=== PATIENT | female | born 1995 | race Caucasian/White ===

== ENCOUNTER 2019-09-30 13:50 | Inpatient (IN) | payer BC, OTHER ==
[~2019-09-30] VITALS: Ht 162.5 cm; Wt 79.6 kg
[2019-09-30] VITALS (11 sets, daily range): BP systolic 120–150; BP diastolic 64–86
--- NOTE | 2019-09-30 14:00 | NUR ---
Brought to ED 1 from registration window just minutes after arrival by PCCT. Pt ambulated and got on cart for quick assessments. RN and Dr Houston to room. Pt has wet appearing clothing from waist down. Pt states, "My water broke." Pt provides minimal information. Dr and RN asks detailed questions with brief simple answers rec'd. Pt originally did not realize she was . Pt did not offer much information. Pt states no prenantal care, has had 3 prior pregnancies and this is the 4th. Pt used Dr Hills once. Pt does not contribute to what term those pregnancies reached. Pt claims having a period every month as seeing some blood. Pt feels her last real period was 4 mo ago. Current smoker reaching about 1/3 pack/day now.Denies alcohol. Denies current or past recreational drug usage. Pt denies severe pain. "I just have a lot of pressure right now." Pt instructed laying on cart with no pushing or attempt to bear down. Dr Houston examing pt's cervix with report she appeared very dilated and requests EMS to ER stat @ 1408. Tawanna COLLAZO, RN Coordinator is doing phone contacts for this RN that remains in pt room. OB precipitous delivery supplies brought to room being made ready/available. 1414--Dr Crisostomo to room having come from her office to see patient and also examine patient. It is noted this patient has fluid that is on the white sheet beneath here that has greenish-yellow color making concern for meconium staining. Continue to assess for FHT. On left lateral the FHT found at 124. 1415--[facility] crew arriving. IV started [address] Crisostomo reports patient is 5cm now appearing to be 6cm. Dr Houston spoke with Dr Hills who is in [place] and he has accepted this transfer to the L&D department at [facility] [place]. 1425--Pt is positioned onto EMS cot and being secured. Dr Crisostomo reports she will be a ride along on EMS transfer and will keep Dr Hills updated via her phone. 1430--Report to Kasandra Yates RN. 1436--Depart ER at this time with [facility] EMS and Dr Crisostomo on board, Code Red.
--- NOTE | 2019-09-30 14:13 | ED GU-Female ---
General Chief Complaint: OB > 20 WEEKS Stated Complaint: WATER BROKE; SUPRAPUBIC PAIN/PRESSURE Source: patient Exam Limitations: no limitations History of Present Illness Date Seen by Provider: Sep 30, 2019 Time Seen by Provider: 13:52 Initial Comments The patient is a 24-year-old female who presents for evaluation after her water broke at home. She is unsure of her last period because she states that she has been having periods during this . She did not have any care during the spread and see. She states that she is a and that she has seen Dr. Hills in the past. She does not believe that she is having contractions at this time. Timing/Duration: just prior to arrival Severity/Quality: mild Location: suprapubic (pressure) Radiation: none Activities at Onset: none Prior Genitourinary Problems: none Allergies and Home Medications Patient Home Medication List Home Medication List Reviewed: Yes Review of Systems Review of Systems Constitutional: no symptoms reported EENTM: no symptoms reported Respiratory: no symptoms reported Cardiovascular: no symptoms reported Gastrointestinal: other (suprapubic discomfort, water broke) Genitourinary: no symptoms reported Musculoskeletal: no symptoms reported Skin: no symptoms reported Psychiatric/Neurological: No Symptoms Reported Endocrine: No Symptoms Reported Hematologic/Lymphatic: No Symptoms Reported All Other Systemes Reviewed Negative Unless Noted: Yes Past Ipyqrzr-Xqklmv-Qkbrul Hx Past Med/Social Hx: Reviewed Nursing Past Med/Soc Hx Patient Social History Recent Foreign Travel: No Contact w/Someone Who Travel: No Physical Exam Vital Signs Capillary Refill : Height, Weight, BMI Height: '" Weight: lbs. oz. kg; BMI Method: General Appearance: WD/WN, no apparent distress, other (pt calm, appears comfortable) HEENT: PERRL/EOMI, pharynx normal Cardiovascular: regular rate, rhythm, no edema, no JVD, no murmur Respiratory: lungs clear, normal breath sounds, no respiratory distress, no accessory muscle use Gastrointestinal: non tender, soft, no pulsatile mass, other (gravid, non- tender abdomen) Genital/Rectal: other (cervix dilated to approx 8cm, can feel top of head, no bleeding, FHT's are reassuring) Back: normal inspection, no vertebral tenderness Extremities: non-tender, no pedal edema, no calf tenderness Neurologic/Psychiatric: no motor/sensory deficits, alert, normal mood/affect, oriented x 3 Skin: normal color, warm/dry Progress/Results/Core Measures Suspected Sepsis SIRS Temperature: Pulse: Respiratory Rate: Blood Pressure / Mean: Results/Orders Vital Signs/I&O Capillary Refill : Progress Note : Progress Note @1355 - Case d/w Dr. Hills who states to transfer the pt to [place] but to discuss with Dr. Crisostomo if needed as she can assist with delivery if delivery is imminent. Message left with Dr. Crisostomo. Pt dilated but denies feeling any contractions. EMS called to arrange for transfer to [facility]. @1405 - EMS in department awaiting transfer. Dr. Crisostomo states she is en route to assist. @1413 - Dr. Crisostomo in the ED. @1418 - Dr. Crisostomo states the pt can be transferred and she is going to contact Dr. Hills to help with the transfer at this time. EMS taking patient to [facility]. Departure Communication (Admissions) Time/Spoke to Admitting Phy: 14:15 Dr. Hills accepts the pt for transfer to [facility] L&D. Impression Primary Impression: Rupture of membranes with clear amniotic fluid Additional Impression: care insufficient Disposition: ADMITTED INPATIENT Condition: Critical Admissions Decision to Admit Reason: Admit from ER (General) Decision to Admit/Date: Sep 30, 2019 Time/Decision to Admit Time: 14:15 Departure-Patient Inst. Referrals: NO,LOCAL PHYSICIAN (PCP/Family) Primary Care Physician EDEL MORALES DO Sep 30, 2019 14:13
--- NOTE | 2019-09-30 14:18 | NUR ---
Dr. Crisostomo arrived. Dr. Crisostomo stated patient is dilated to a 5-6
--- NOTE | 2019-09-30 14:21 | NUR ---
[facility] was called and notified that Dr. Crisostomo and [facility] are bringing a patient in that is in labor. [facility] was called and notified that patient was coming.
--- NOTE | 2019-09-30 14:30 | NUR ---
Call report to Labor and delivery Kasandra Yates RN.
--- NOTE | 2019-09-30 14:36 | NUR ---
Pt departing ER on [facility] CODE RED to [place] [facility] L&D Dept. Dr Crisostomo, [facility] SHARED SERVICES CONSULTANT physician is accompanying as a ride along on EMS.
[2019-09-30] MEDS ORDERED: D5 LR IV SOLUTION 1,000 ML IV ONE (15:23)
[2019-09-30] MEDS ORDERED: OXYTOCIN PRE-MIX DRIP 500 ML IV ONE (15:23)
[2019-09-30] MEDS ORDERED: AMPICILLIN FOR IV USE 2,000 MG VIAL ONE (15:23)
[2019-09-30 15:25] LABS: BILIRUBIN,URINE NEGATIVE (NEGATIVE); CLARITY,URINE CLEAR; COLOR,URINE YELLOW; GLUCOSE, URINE (UA) NEGATIVE (NEGATIVE); KETONES,URINE 2+ (NEGATIVE); LEUKOCYTE ESTERASE ,URINE 1+ (NEGATIVE); NITRITE,URINE NEGATIVE (NEGATIVE); PH,URINE 6.5 (5-9); PROTEIN,URINE TRACE (NEGATIVE)
[2019-09-30 15:31] LABS: BACTERIA,URINE TRACE /HPF; RBC,URINE RARE /HPF; WBC,URINE 0-2 /HPF
[2019-09-30 15:49] LABS: BASOPHILS % (AUTO) 0 % (0-10); EOSINOPHILS # (AUTO) 0.1 10^3/uL (0.0-0.3); EOSINOPHILS % (AUTO) 1 % (0-10); HEMATOCRIT 31 % (35-52); HEMOGLOBIN 9.9 G/DL (11.5-16.0); LYMPHOCYTES # (AUTO) 1.4 X 10^3 (1.0-4.0); LYMPHOCYTES % (AUTO) 11 % (12-44); MEAN CORPUSCULAR HEMOGLOBIN 28 PG (25-34); MEAN CORPUSCULAR HGB CONC 32 G/DL (32-36); MEAN CORPUSCULAR VOLUME 86 FL (80-99); MEAN PLATELET VOLUME 12.6 FL (7.4-10.4); MONOCYTES # (AUTO) 0.9 X 10^3 (0.0-1.0); MONOCYTES % (AUTO) 7 % (0-12); NEUTROPHILS # (AUTO) 9.8 X 10^3 (1.8-7.8); NEUTROPHILS % (AUTO) 81 % (42-75); PLATELET COUNT 128 10^3/uL (130-400); RED CELL DISTRIBUTION WIDTH 14.4 % (10.0-14.5); WHITE BLOOD COUNT 12.1 10^3/uL (4.3-11.0)
--- NOTE | 2019-09-30 16:03 | History & Physical-OB/GYN ---
History of Present Illness History of Present Illness Reason for visit/HPI Ms. Berger, A0 with No Care, was transferred here by EMS after her water broke in [place]. Date of Admission Sep 30, 2019 at 14:56 Date Seen by a Provider: Sep 30, 2019 Time Seen by a Provider: 15:45 I consulted on this patient on 09/30/19 15:58 Attending Physician Jason Hills DO Admitting Physician Jason Hills DO Consult Allergies and Home Medications Allergies Coded Allergies: No Known Drug Allergies (Unverified , 09/30/19) Patient Home Medication List Home Medication List Reviewed: Yes Past Lxzjeut-Rputcy-Opounw Hx Patient Social History Alcohol Use: Denies Use Recreational Drug Use: No Smoking Status: Current Everyday Smoker Type Used: Cigarettes 2nd Hand Smoke Exposure: Yes Recent Foreign Travel: No Contact w/other who traveled: No Recent Hopitalizations: No Recent Infectious Disease Expo: No Seasonal Allergies Seasonal Allergies: No Surgeries Yes (cyst on breast) Respiratory No Cardiovascular No Neurological No Reproductive System : Yes Hx : 4 Hx Para: 3 Genitourinary No Gastrointestinal No Musculoskeletal No Endocrine History of Endocrine Disorders: No HEENT History of HEENT Disorders: No Cancer No Psychosocial History of Psychiatric Problem: No Integumentary History of Skin or Integumenta: No (numerous scabs on extremities, some are he aled) Blood Transfusions History of Blood Disorders: No Review of Systems Constitutional: see HPI Physical Exam Physical Exam Vital Signs Vital Signs Date Time Temp Pulse Resp B/P (MAP) Pulse Ox O2 Delivery O2 Flow Rate FiO2 09/30/19 14:00 36.9 107 20 145/95 (112) 96 Room Air Capillary Refill : Less Than 3 Seconds Labs Laboratory Tests 09/30/19 03:30: White Blood Count 12.1H, Red Blood Count 3.60L, Hemoglobin 9.9L, Hematocrit 31L, Mean Corpuscular Volume 86, Mean Corpuscular Hemoglobin 28, Mean Corpuscular Hemoglobin Concent 32, Red Cell Distribution Width 14.4, Platelet Count 128L, Mean Platelet Volume 12.6H, Neutrophils (%) (Auto) 81H, Lymphocytes (%) (Auto) 11L, Monocytes (%) (Auto) 7, Eosinophils (%) (Auto) 1, Basophils (%) (Auto) 0, Neutrophils # (Auto) 9.8H, Lymphocytes # (Auto) 1.4, Monocytes # (Auto) 0.9, Eosinophils # (Auto) 0.1, Basophils # (Auto) 0.0 09/30/19 15:07: Urine Color YELLOW, Urine Clarity CLEAR, Urine pH 6.5, Urine Specific [place] 1.015L, Urine Protein TRACEH, Urine Glucose (UA) NEGATIVE, Urine Ketones 2+H, Urine Nitrite NEGATIVE, Urine Bilirubin NEGATIVE, Urine Urobilinogen 1.0, Urine Leukocyte Esterase 1+H, Urine RBC (Auto) NEGATIVE, Urine RBC RARE, Urine WBC 0- 2, Urine Squamous Epithelial Cells 2-5, Urine Crystals NONE, Urine Bacteria TRACE, Urine Casts NONE, Urine Mucus NEGATIVE, Urine Culture Indicated NO, Urine Opiates Screen NEGATIVE, Urine Oxycodone Screen NEGATIVE, Urine Methadone Screen NEGATIVE, Urine Propoxyphene Screen NEGATIVE, Urine Barbiturates Screen NEGATIVE, Ur Tricyclic Antidepressants Screen NEGATIVE, Urine Phencyclidine Screen NEGATIVE, Urine Amphetamines Screen NEGATIVE, Urine Methamphetamines Screen NEGATIVE, Urine Benzodiazepines Screen NEGATIVE, Urine Cocaine Screen NEGATIVE, Urine Cannabinoids Screen NEGATIVE General Appearance: Moderate Distress (Screams with each contractions, but refuses epidural anesthesia) Respiratory: Chest Non Tender, Lungs Clear, Normal Breath Sounds Cardiovascular: Regular Rate, Rhythm, No Murmur Abdominal: normal bowel sounds Vagina: WNL Cervix OS: open (5-6 cm/80%/-3 Vertex/SROM) Uterus: WNL, Enlarged (Gravid) Pelvic Exam: normal external exam Extremity: Normal Inspection, Normal Range of Motion, No Calf Tenderness Assessment/Plan Assessment and Plan Intrauterine at undetermined gestation 2. Unknown GBS Plan: Ampicillin given for GBS prophylaxis. Expectant management. Jamb Cutter and Respiratory both available. Admission Diagnosis Admission Status: Inpatient Order (span 2 midnights) Reason for Inpatient Admission: Intrauterine unknown gestational age 2. No care 3. Unknown GBS status JASON HILLS DO Sep 30, 2019 16:03
[2019-09-30] MEDS ORDERED: LIDOCAINE 1% INJ 20 ML 20 ML VIAL ONE (16:06)
[2019-09-30] MEDS ORDERED: LIDOCAINE/EPI 2% 1:200,00 (XYLOCAINE) 10 ML VIAL ONE (16:06)
[2019-09-30 16:07] LABS: AMPHETAMINE SCREEN, URINE NEGATIVE (NEGATIVE); BARBITURATE SCREEN URINE NEGATIVE (NEGATIVE); BENZODIAZEPINES SCREEN URINE NEGATIVE (NEGATIVE); CANNABINOID SCREEN, URINE NEGATIVE (NEGATIVE); COCAINE SCREEN URINE NEGATIVE (NEGATIVE); METHADONE STAT NEGATIVE (NEGATIVE); METHAMPHETAMINE SCREEN URINE S NEGATIVE (NEGATIVE); OPIATE SCREEN URINE NEGATIVE (NEGATIVE); OXYCODONE STAT NEGATIVE (NEGATIVE); PROPOXYPHENE STAT NEGATIVE (NEGATIVE); TRICYCLIC ANTIDEPRESSANTS SCRE NEGATIVE (NEGATIVE)
[2019-09-30] MEDS ORDERED: OXYTOCIN PRE-MIX DRIP 500 ML IV SCH (16:34)
--- OUTSIDE RECORDS SUMMARY | 2019-09-30 16:35 | XMS REPORT | Continuity of Care Document ---
Author Organization Unknown Address Unknown Phone Unavailable Allergies Active Description Code Type Severity Reaction Onset Reported/Identified Relationship to Patient Clinical Status Yes No Known Drug Allergies [id number] Drug Allergy Unknown N/A 09/30/2019 Medications There is no data. Problems There is no data. Procedures There is no data. Results Test Result Range Complete blood count (CBC) with automate d white blood cell (WBC) differential - 09/30/19 03:30 Blood leukocytes automated count (number/volume) 12.1 10*3/uL 4.3-11.0 Blood erythrocytes automated count (number/volume) 3.60 10*6/uL 4.35-5.85 Venous blood hemoglobin measurement (mass/volume) 9.9 g/dL 11.5-16.0 Blood hematocrit (volume fraction) 31 % 35-52 Automated erythrocyte mean corpuscular volume 86 [ foz_us] 80-99 Automated erythrocyte mean corpuscular h emoglobin (mass per erythrocyte) 28 pg 25-34 Automated erythrocyte mean corpuscular h emoglobin concentration measurement (mass/volume) 32 g/dL 32-36 Automated erythrocyte distribution width ratio 14. 4 % 10.0- 14.5 Automated blood platelet count (count/volume) 128 10*3/uL 130-400 Automated blood platelet mean volume measurement 12.6 [foz_us] 7.4-10.4 Automated blood neutrophils/100 leukocytes 81 % 42-75 Automated blood lymphocytes/100 leukocytes 11 % 12-44 Blood monocytes/100 leukocytes 7 % 0-12 Automated blood eosinophils/100 leukocytes 1 % 0-10 Automated blood basophils/100 leukocytes 0 % 0-10 Blood neutrophils automated count (number/volume) 9.8 10*3 1.8-7.8 Blood lymphocytes automated count (number/volume) 1.4 10*3 1.0-4.0 Blood monocytes automated count (number/volume) 0. 9 10*3 0.0-1.0 Automated eosinophil count 0.1 10*3/uL 0 .0-0.3 Automated blood basophil count (count/volume) 0.0 10*3/uL 0.0-0.1 Complete urinalysis with reflex to cultu re - 09/30/19 15:07 Urine color determination YELLOW NRG Urine clarity determination CLEAR NR G Urine pH measurement by test strip 6.5 5-9 Specific gravity of urine by test strip 1.015 1.016-1.022 Urine protein assay by test strip, semi-quantitative TRACE NEGATIVE Urine glucose detection by automated test strip NE GATIVE NEGATIVE Erythrocytes detection in urine sediment by light micr oscopy NEGATIVE NEGATIVE Urine ketones detection by automated test strip 2+ NEGATIVE Urine nitrite detection by test strip NEGATIVE NEGATIVE Urine total bilirubin detection by test strip NEGA TIVE NEGATIVE Urine urobilinogen measurement by automated test strip (mass/volume) 1.0 mg/dL < = 1.0 Urine leukocyte esterase detection by dipstick 1+ NEGATIVE Automated urine sediment erythrocyte cou nt by microscopy (number/high power field) RARE NRG Automated urine sediment leukocyte count by microscopy (number/high power field) [HPF] NRG Bacteria detection in urine sediment by light microsco py TRACE NRG Squamous epithelial cells detection in u rine sediment by light microscopy 2-5 NRG Crystals detection in urine sediment by light microsco py NONE NRG Casts detection in urine sediment by light microscopy NONE NRG Mucus detection in urine sediment by light microscopy NEGATIVE NRG Complete urinalysis with reflex to culture NO NRG Urine drug screening test - 09/30/19 15: 07 Urine phencyclidine detection by screening method NEGATIVE NEGATIVE Urine benzodiazepines detection by screening method NEGATIVE NEGATIVE Urine cocaine detection NEGATIVE NEGATI VE Urine amphetamines detection by screening method N EGATIVE NEGATIVE Urine methamphetamine detection by screening method NEGATIVE NEGATIVE Urine cannabinoids detection by screening method N EGATIVE NEGATIVE Urine opiates detection by screening method NEGATI VE NEGATIVE Urine barbiturates detection NEGATIVE N EGATIVE Screening urine tricyclic antidepressants detection NEGATIVE NEGATIVE Urine methadone detection by screening method NEGA TIVE NEGATIVE Urine oxycodone detection NEGATIVE NEGA TIVE Urine propoxyphene detection NEGATIVE N EGATIVE Encounters ACCT No. Visit Date/Time Discharge Status Pt. Type Provider Facility Loc./Unit Complaint [id number] 09/30/2019 14:56:[address] Inpatient [facility] WATER BROKE; SUPRAPUBIC PAIN /PRESSURE
--- NOTE | 2019-09-30 16:43 | OB Labor & Delivery Record ---
Vag Delivery Note Vag Delivery Note Date of Delivery: 09/30/19 Preoperative Diagnosis: Elliot Berger is a (24 /Para 4 / 3, Unknown Gestational Age and No Care and SROM Postoperative Diagnosis: Same and Unknown GBS Status Surgeon: CHERYL HERNANDEZ Resident Engineer: [None] Anesthesia: [None] Delivery Type: [Normal Spontaneous Vaginal Delivery with SROM] Findings: [Male in cephalic presentation] Viable [Male] , apgars [9, 9], weight [9 lb 10 oz] Lacerations: Bilateral periurethral laceration, superficial, hemostatic, not repaired Intact placenta with 3 vessel cord. No nuchal cord, body cord or shoulder dystocia Estimated Blood Loss: [300] ml Complications: Arm cord x 1 Condition: Stable Description of Procedure: The patient is a 24 year old female who presented [with Unknown Gestational Age, No Care, and Unknown GBS Status]. She was admitted and informed consent was obtained. Her labor course was unremarkable. She progressed to complete dilatation and began to push. She was then set up for delivery. The 's head was delivered atraumatically in the [WINDY] position. The shoulders and remainder of the infant's body were then delivered without difficulty. Upon delivery, the head was held below the level of the perineum and the mouth and nares were bulb suctioned. The cord was doubly clamped and cut and the was handed off to the pediatric staff. An intact placenta with 3-vessel cord delivered via [place] and there was found to be minimal bleeding.~ Vigorous fundal massage was performed and the fundus was found to be firm. IV oxytocin was given. Examination of the vagina and perineum revealed bilateral periurethral lacerations--hemostatic, not repaired. Following the sponge, instrument and needle counts were correct. Mom and baby were both in stable condition in the labor suite. Vitals - Labs Vital Signs - I&O Vital Signs Date Time Temp Pulse Resp B/P (MAP) Pulse Ox O2 Delivery O2 Flow Rate FiO2 09/30/19 14:00 36.9 107 20 145/95 (112) 96 Room Air Labs Laboratory Tests 09/30/19 03:30: White Blood Count 12.1H, Red Blood Count 3.60L, Hemoglobin 9.9L, Hematocrit 31L, Mean Corpuscular Volume 86, Mean Corpuscular Hemoglobin 28, Mean Corpuscular Hemoglobin Concent 32, Red Cell Distribution Width 14.4, Platelet Count 128L, Mean Platelet Volume 12.6H, Neutrophils (%) (Auto) 81H, Lymphocytes (%) (Auto) 11L, Monocytes (%) (Auto) 7, Eosinophils (%) (Auto) 1, Basophils (%) (Auto) 0, Neutrophils # (Auto) 9.8H, Lymphocytes # (Auto) 1.4, Monocytes # (Auto) 0.9, E osinophils # (Auto) 0.1, Basophils # (Auto) 0.0 09/30/19 15:07: Urine Color YELLOW, Urine Clarity CLEAR, Urine pH 6.5, Urine Specific [place] 1.015L, Urine Protein TRACEH, Urine Glucose (UA) NEGATIVE, Urine Ketones 2+H, Urine Nitrite NEGATIVE, Urine Bilirubin NEGATIVE, Urine Urobilinogen 1.0, Urine Leukocyte Esterase 1+H, Urine RBC (Auto) NEGATIVE, Urine RBC RARE, Urine WBC 0- 2, Urine Squamous Epithelial Cells 2-5, Urine Crystals NONE, Urine Bacteria TRACE, Urine Casts NONE, Urine Mucus NEGATIVE, Urine Culture Indicated NO, Urine Opiates Screen NEGATIVE, Urine Oxycodone Screen NEGATIVE, Urine Methadone Screen NEGATIVE, Urine Propoxyphene Screen NEGATIVE, Urine Barbiturates Screen NEGATIVE, Ur Tricyclic Antidepressants Screen NEGATIVE, Urine Phencyclidine Screen NEGATIVE, Urine Amphetamines Screen NEGATIVE, Urine Methamphetamines Screen NEGATIVE, Urine Benzodiazepines Screen NEGATIVE, Urine Cocaine Screen NE GATIVE, Urine Cannabinoids Screen NEGATIVE CHERYL HERNANDEZ DO Sep 30, 2019 16:43
[2019-09-30] MEDS ORDERED: MEASLES,MUMPS,RUBELLA 1 EA INJ SQ ONE (16:45)
[2019-09-30] MEDS ORDERED: BENZOCAINE/MENTHOL (DERMOPLAST) 60 ML CAN TP PRN (16:45)
[2019-09-30] MEDS ORDERED: WITCH HAZEL(TUCKS) 40 EA JAR TOP PRN (16:45)
[2019-09-30] MEDS ORDERED: TETANUS,DIPTH,PERTUSS P/F (BOOSTRIX) 0.5 ML VIAL IM ONE (16:45)
[2019-09-30] MEDS ORDERED: DIBUCAINE (NUPERCAINAL) 1% OINT 30 GM TOP PRN (16:45)
[2019-09-30] MEDS: ACETAMINOPHEN 500 MG TAB (TYLENOL) PO SCH (18:48)
--- NOTE | 2019-09-30 20:00 | NUR ---
RN called to room, pt states feeling bleeding through vpad. Pt turned to back and fundal massage given. FF @U, light lochia rubra noted with massage but large 5-6cm clot noted in vpad. No active bleeding noted. Assisted pt up to void, void noted, pericare discussed and demonstrated. Clean gown and vpad applied, pt back to bed without difficulty. Enc pt to call out if she notices increased bleeding/clots.
[2019-09-30] MEDS: DOCUSATE SODIUM 100 MG (COLACE) CAP PO SCH (21:32)
[2019-09-30] MEDS: IBUPROFEN 800 MG (MOTRIN) TAB PO SCH (21:32)
[2019-09-30] MEDS ORDERED: CATHETER FLUSH 10 ML SYR IV SCH (22:00)
[2019-10-01] MEDS: ACETAMINOPHEN 500 MG TAB (TYLENOL) PO SCH ×2 (01:43→07:54)
[2019-10-01 03:28] VITALS: BP 121/73
[2019-10-01 05:02] LABS: BASOPHILS % (AUTO) 0 % (0-10); EOSINOPHILS # (AUTO) 0.2 10^3/uL (0.0-0.3); EOSINOPHILS % (AUTO) 1 % (0-10); HEMATOCRIT 26 % (35-52); HEMOGLOBIN 8.4 G/DL (11.5-16.0); LYMPHOCYTES # (AUTO) 2.6 X 10^3 (1.0-4.0); LYMPHOCYTES % (AUTO) 22 % (12-44); MEAN CORPUSCULAR HEMOGLOBIN 28 PG (25-34); MEAN CORPUSCULAR HGB CONC 33 G/DL (32-36); MEAN CORPUSCULAR VOLUME 86 FL (80-99); MEAN PLATELET VOLUME 12.4 FL (7.4-10.4); MONOCYTES # (AUTO) 1.2 X 10^3 (0.0-1.0); MONOCYTES % (AUTO) 10 % (0-12); NEUTROPHILS # (AUTO) 7.8 X 10^3 (1.8-7.8); NEUTROPHILS % (AUTO) 66 % (42-75); PLATELET COUNT 128 10^3/uL (130-400); RED CELL DISTRIBUTION WIDTH 14.2 % (10.0-14.5); WHITE BLOOD COUNT 11.8 10^3/uL (4.3-11.0)
[2019-10-01] MEDS: IBUPROFEN 800 MG (MOTRIN) TAB PO SCH (05:09)
[2019-10-01] MEDS ORDERED: OXYC5TAB96 PO (06:48)
[2019-10-01] MEDS ORDERED: IBUP-1780 PO (06:48)
[2019-10-01] MEDS ORDERED: DCS100C PO (06:48)
[2019-10-01] MEDS ORDERED: ACET-93 PO (06:48)
--- NOTE | 2019-10-01 06:54 | Discharge Summary ---
Diagnosis/Chief Complaint Date of Admission Sep 30, 2019 at 14:56 Date of Discharge October 01, 2019 Discharge Date: Oct 01, 2019 Discharge Time: 17:00 Admission Diagnosis Admission Diagnosis Intrauterine at unknown gestational age 2. No Care 3. SROM 4. Unknown GBS Status Discharge Diagnosis Intrauterine at unknown gestational age--delivered 2. No Care 3. SROM 4. Unknown GBS Status Reason Hospital Visit Ms. Berger, A0 with No Care, was transferred here by EMS after her water broke in [place]. Discharge Summary Hospital Course Was the Problem List Reviewed?: Yes Hospital Course Ms. Berger, G4 now P4 was transferred to via [facility] by EMS from [place] secondary to her water breaking when she didn't even realize that she was . She progressed to complete, delivered a healthy viable male . The remainder of her hospitalization was unremarkable. Day #1 she was without complaint. We will discharge her to home with instructions, prescriptions, and a follow up appointment. Labs Laboratory Tests 09/30/19 15:07: Urine Specific [place] 1.015L, Urine Protein TRACEH, Urine Ketones 2+H, Urine Leukocyte Esterase 1+H 09/30/19 15:30: White Blood Count 12.1H, Red Blood Count 3.60L, Hemoglobin 9.9L, Hematocrit 31L, Platelet Count 128L, Mean Platelet Volume 12.6H, Neutrophils (%) (Auto) 81H, Lymphocytes (%) (Auto) 11L, Neutrophils # (Auto) 9.8H 09/30/19 17:09: 10/01/19 04:47: White Blood Count 11.8H, Red Blood Count 3.01L, Hemoglobin 8.4L, Hematocrit 26L, Platelet Count 128L, Mean Platelet Volume 12.4H, Monocytes # (Auto) 1.2H Procedures None. Discharge Physical Examination Allergies: Coded Allergies: No Known Drug Allergies (Unverified , 09/30/19) Vitals & I&Os Vital Signs Date Time Temp Pulse Resp B/P (MAP) Pulse Ox O2 Delivery O2 Flow Rate FiO2 10/01/19 03:28 36.5 74 16 121/73 (89) 95 Room Air General Appearance: Alert, Oriented X3, Cooperative HEENT: Atraumatic Respiratory: Clear to Auscultation, Normal Air Movement Cardiovascular: Regular Rate, No Murmurs Abdominal: Normal Bowel Sounds, Soft, No Tenderness Extremities: No Clubbing, No Cyanosis, No Edema Skin: No Rashes Neuro: Normal Gait, Normal Speech Psych/Mental Status: Mental Status NL Discharge Home Medications Reviewed and agree with Discharge Medication list on patient's Discharge Instruction sheet Instructions to Patient/Family Please see electronic discharge instructions given to patient. Clinical Quality Measures DVT/VTE Risk/Contraindication: Risk Factor Score Per Nursin RFS Level Per Nursing on Admit: 3=High CHERYL HERNANDEZ DO Oct 01, 2019 06:54
[2019-10-01] MEDS ORDERED: PRENATAL VITAMIN 1 EA TAB PO SCH (07:00)
[2019-10-01] MEDS: DOCUSATE SODIUM 100 MG (COLACE) CAP PO SCH (07:54)
[2019-10-01 08:00] VITALS: BP 116/68
--- NOTE | 2019-10-01 09:42 | NUR ---
CM/SS visited with patient for social service consult. The patient reports that she is doing well today. The patient gave yesterday to a boy. She states she named the baby boy Chu. Patient was in the room alone and did not have spouse present. : The patient reports that she was unaware of until her water broke. According to the patient, she took multiple test that were all negative. She did notice that she was gaining weight but believed it to be from working at the [employer]. The patient did not seek out care due to not knowing of . The patient is a current smoker and smoke throughout the . She is unaware of any complications at this time. Assistance: The patient is not currently receiving any financial assistance. She states that she was on Medicaid for each and plans to apply again. The patient has applied for unemployment after loosing her job 1 week prior at the [employer]. CM/SS asked the patient if this could set her up with [place] to help with formula and other food items. She stated that she wanted to call and believed she still had the number at home. CM/SS informed the patient of different resources for new mothers and the diaper stock if she were enrolled. The patient gave verbal consent for this to make a referral for [facility]. CM/SS contacted Nikole Santana and made referral. They will schedule a virtual visit with the patient. The patient does still currently have insurance through her job. She is unsure when she will lose benefits. Items: The patient reports that her cnidkk-oa-bvo just had a baby a few months ago and is going to give the patient a few items to get by. The patient states that she has a bassinet, diapers, clothes, bottles/formula, and car seat. Supports: The patient reports that she is currently and has 3 additional children (7, 6, and 5 years old). Her is currently working. [place] , children, [id number], and grandparents. She verbalized she has a good support system. The patient states that she does not have any additional needs at this time.
== END 2019-10-01 11:00 | disposition home or self-care (01) | DRG 807 ==
LOC: ER FS 13:53 → LDRP 14:56
PROVIDERS: ADMIT Obstetrics & Gynecology; ATTEND Obstetrics & Gynecology
PROC: 10E0XZZ Delivery of Products of Conception, External Approach (ICD-10-PCS; principal; 2019-09-30)
DX: O75.89 Other specified complications of labor and delivery (principal); Z37.0 Single live birth; Z3A.00 Weeks of gestation of pregnancy not specified; O71.82 Other specified trauma to perineum and vulva
CPT/HCPCS: 36415; 80306; 80307; 81000; 83033; 85025; 85027; 86703; 86762; 86780; 86850; 86900; 86901; 87088; 87340; 87350; 90715